=== PATIENT | male | born 1995 | race Caucasian/White ===

== ENCOUNTER 2019-05-06 11:20 | Emergency (ER) | payer BC ==
[~2019-05-06] VITALS: Ht 180.3 cm; Wt 78.0 kg
--- NOTE | 2019-05-06 11:25 | NUR ---
pt bibra to ed bed 10. per report, witnessed seizure, tonic clonic and lasting 30 seconds. pt has no obvious head and oral trauma. 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 vss awaiting md weeks.
--- NOTE | 2019-05-06 11:37 | NUR ---
skinny golf cart maker at bedside for eval.
[2019-05-06] MEDS ORDERED: LORAZEPAM INJ 2 MG/ML VIAL ONE (11:58)
[2019-05-06] MEDS ORDERED: LORAZEPAM INJ 2 MG/ML VIAL IVP ONE (12:00)
--- NOTE | 2019-05-06 12:00 | NUR ---
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
[2019-05-06 12:05] LABS: BASOPHILS % (AUTO) 0.7 % (0.0-2.0); EOSINOPHILS % (AUTO) 0.9 % (0.0-6.0); HEMATOCRIT 46 % (39-51); HEMOGLOBIN 15.9 g/dL (13.5-17.5); LYMPHOCYTES # (AUTO) 1.4 /CMM (0.8-4.8); LYMPHOCYTES % (AUTO) 25.9 % (20.0-44.0); MEAN CORPUSCULAR HGB CONC 34 g/dl (31.0-36.0); MEAN CORPUSCULAR VOLUME 94 fL (80-96); MONOCYTES # (AUTO) 0.7 /CMM (0.1-1.30); NEUTROPHILS # (AUTO) 3.1 /CMM (1.8-8.9); NEUTROPHILS % (AUTO) 58.5 % (43.0-81.0); PLATELET COUNT (AUTO) 258 /CMM (150-450); RED BLOOD CELL COUNT(AUTO) 4.91 MIL/uL (4.5-6.0); WHITE BLOOD COUNT (AUTO) 5.3 K/uL (4.3-11.0)
[2019-05-06 12:16] LABS: CALCIUM, SERUM 9.3 mg/dL (8.5-10.1); CREATININE 1.2 mg/dL (0.6-1.3); POTASSIUM 4.2 mmol/L (3.5-5.1)
[2019-05-06 12:29] LABS: BILIRUBIN,DIRECT 0.1 mg/dL (0.0-0.2); BILIRUBIN,TOTAL 0.6 mg/dL (0.2-1.0); TOTAL PROTEIN, SERUM 7.9 g/dL (6.4-8.2)
--- NOTE | 2019-05-06 13:19 | NUR ---
FAXED [employer] REPORTING SEIZURE FORM TO [facility] [employer] [employer]Y [employer]
--- NOTE | 2019-05-06 13:19 | NUR ---
Patient discharged to home in stable condition. Written and verbal after care instructions given. Patient verbalizes understanding of instruction.IV removed. Catheter intact and site benign. Pressure and 4x4 applied to site. No bleeding noted.
[2019-05-06 13:20] VITALS: BP 115/60
== END 2019-05-06 13:21 | disposition home or self-care (01) ==
LOC: ER 11:22
DX: R56.9 Unspecified convulsions (principal); F41.9 Anxiety disorder, unspecified; F12.10 Cannabis abuse, uncomplicated; F10.10 Alcohol abuse, uncomplicated; Y90.9 Presence of alcohol in blood, level not specified
CPT/HCPCS: 36415; 70450; 80048; 80076; 85025; 96374; 99284; J2060